=== PATIENT | male | born 1990 | race Caucasian/White ===

== ENCOUNTER 2024-09-01 06:51 | Emergency (ER) | payer BC, SELFPAY ==
[2024-09-01 06:53] VITALS: BP 141/88
--- NOTE | 2024-09-01 09:13 | ED.GENMED ---
History of Present Illness
General
Chief Complaint: Cold/Flu/URI Symptoms
Source: patient
Exam Limitations: none
Time Seen by Provider: 09/01/24 08:02
Nursing documentation reviewed up to this point in time: agreed with
History of Present Illness
History of Present Illness:
Patient who works as a teacher, presents to ED secondary to persistent cough, low-grade fever, sore throat, body ache, and decreased appetite over the past 6 days. Denies recent travel. Denies back pain. Denies chest pain. Denies abdominal pain.
Denies nausea, vomiting, or diarrhea. Denies rash. Denies headache. Denies neck pain.
Past History
Past History
ED Past Medical History: None
ED Past Surgical History: None
Review of Systems
Review of Systems
Allergies reviewed?: Yes
All Other Systems: ROS reviewed and negative except as documented in HPI and ROS
Constitutional: Reports fever
EENT: Reports sore throat
Respiratory: Reports cough; Denies trouble breathing
Cardiac: Reports no symptoms
ABD/GI: Reports no symptoms; Denies abdominal pain, vomiting or diarrhea
Musculoskeletal: Reports muscle pain
Skin: Reports no symptoms
Neurological: Reports no symptoms
Phy Exam
Physical Exam
Physical Exam:
Physical Exam
General: mild distress, not acutely ill. afebrile
Head: nc/at. eomi
Neck: supple. no meningeal signs. normal posterior pharynx
Heart: s1/s2 regular rate and rhythm, no murmur. equal radial pulses.
Lungs: no acute respiratory distress. clear bilaterally
Abdomen: normal bowel sounds. not tender.
Neuro: alert and oriented. no focal neurological deficits
Skin: no rash
Psychiatric: well kept. interactive and cooperative
Extremities: no edema. no calf tenderness.
Course
Orders/Labs/Results
Orders:
Orders
09/01/24 09:08
Guaifenesin/Dextromethorphan [Robitussin Dm] 10 ml PO NOW STA
CR Chest - 2 Views Urgent
Comment:
Reason For Exam: cough/fever
09/01/24 09:09
Albuterol Nebs [Ventolin Nebules] 2.5 mg INH R NOW STA
09/01/24 09:20
COVID-19 Antigen Urgent
Source: Nasal Swab
Monotest Urgent
Vital Signs
Initial and Last Documented VS:
Initial Vital Signs
Temp Pulse Resp BP Pulse Ox
98.4 F 94 16 141/88 100
09/01/24 06:53 09/01/24 06:53 09/01/24 06:53 09/01/24 06:53 09/01/24 06:53
Last Documented Vital Signs
Temp Pulse Resp BP Pulse Ox
98.6 F 91 22 131/85 99
09/01/24 11:05 09/01/24 11:05 09/01/24 11:05 09/01/24 11:05 09/01/24 11:05
MDM/Problems Addressed
MDM/Problems Addressed:
History, exam, and chest x-ray consistent with pneumonia. Fortunately, patient remains afebrile, hemodynamically stable, and without any acute respiratory distress, nor any evidence of dehydration. As such, patient will be discharged home on
antibiotics, i.e. Augmentin, with recommendation to follow-up with PCP as an outpatient.
*Critical Care Note
Total Time (30-74mins, 75-104mins- exclusive of procedures): Not Applicable
ED Attending Note
-
Portions of this chart may have been created with voice recognition software.� Occasional wrong word or��sound alike� substitutions may have occurred due to the inherent limitations of voice recognition software.
Discharge Plan
Departure
Patient Disposition: Home (Routine Discharge)
Date of Disposition: 09/01/24
Time of Disposition: 10:45
Patient with high blood pressure during this ER visit?: Yes
Condition: Good
Discharge Problem:
Pneumonia
Instructions: Pneumonia in adults
Prescriptions:
New
amoxicillin-pot clavulanate 875-125 mg tablet
1 tab PO Q12H Qty: 14 0RF
No Action
cyclobenzaprine 10 MG tablet
5 mg PO HS
ibuprofen [Advil] 200 MG tablet
400 mg PO Q6HPRN PRN (Reason: pain)
Tylenol :
2 cap PO PRN PRN (Reason: pain)
diazepam 5 MG tablet
5 mg PO TIDPRN PRN (Reason: prn for muscle relaxation) Qty: 14 0RF
Referrals:
Giancarlo Engel, DO [Family Provider] -
Activity Restrictions/Additional Instructions:
As discussed, please follow-up with your primary care physician for reevaluation next week. Your prescription has been sent electronically to [facility] pharmacy in [place].
Interventions
Interventions:
*Risk Screen - Suicide Last Done: 09/01/24 06:53
*General Assessment Last Done: 09/01/24 06:53
*Neglect/Abuse Screening Last Done: 09/01/24 06:53
ED- Fall Risk Assessment Last Done: 09/01/24 09:23
*ED COVID-19 Vaccine History Last Done: 09/01/24 09:23
*Nursing Disposition Last Done: 09/01/24 11:05
ED- Pulmonary Assessment Last Done: 09/01/24 09:23
Discharge Date and Time
Discharge Date/Time: 09/01/24 11:06
Print Language: UGANDAN
[2024-09-01 09:23] VITALS: BP 124/79; BMI 25.4
[2024-09-01 09:57] LABS: Monotest Negative (Negative)
[2024-09-01] MEDS: VENTOLIN NEBULES 2.5 MG INH (10:00)
[2024-09-01] MEDS: ROBITUSSIN DM 10 ML PO (10:00)
[2024-09-01 10:04] LABS: COVID-19 Antigen Negative (Negative)
[2024-09-01 11:05] VITALS: BP 131/85
== END 2024-09-01 11:06 | disposition home or self-care (01) ==
LOC: EMR 06:51
PROVIDERS: EMERGENCY PHYSICIAN Emergency Medicine; FAMILY PHYSICIAN Family Medicine
DX: J18.9 Pneumonia, unspecified organism (principal); R03.0 Elevated blood-pressure reading, without diagnosis of hypertension; Z11.52 Encounter for screening for COVID-19
CPT/HCPCS: 99284; 94640; 71046; 86308; 87811